=== PATIENT | female | born 1970 | race Caucasian/White ===

== ENCOUNTER 2018-08-24 17:14 | Observation (INO) | payer OTHER, SELFPAY ==
[2018-08-24 18:54] LABS: #Eosinphils 0.3 thou/uL (0.0-0.7); #Lymphocytes 3.3 thou/uL (1.20-3.40); #Monocytes 0.8 thou/uL (0.11-0.59); #Neutrophils 4.5 thou/uL (1.40-6.50); %Basophils 0.5 % (0.0-1.0); %Eosinophils 3.3 % (0.0-10.0); %Monocytes 8.5 % (0.0-10.0); %Neutrophils 50.8 % (42.0-75.0); Hemoglobin 12.4 g/dL (12.0-16.0); Mean Corpuscular HGB CONC 33.2 g/dL (32.0-36.0); Mean Corpuscular Hemoglobin 28.5 pg (27.0-31.0); Mean Corpuscular Volume 85.8 fL (78.0-98.0); Mean Platelet Volume 7.2 fL (7.4-10.4); Platelet Count 357 thou/uL (130-400); RBC Distribution Width 14.2 % (11.5-14.5); Red Blood Cell (RBC) Count 4.35 mill/uL (4.20-5.40); White Blood Cell (WBC) Count 8.9 thou/uL (4.8-10.8)
--- NOTE | 2018-08-24 19:03 | RAD ---
PORTABLE AP CHEST X-RAY: 08/24/2018 HISTORY: Chest pain. COMPARISON: Study from the [facility] from 09/16/2012. FINDINGS: The cardiac silhouette and pulmonary vasculature are within normal limits. The lungs remain clear. There has been no interval change when compared to the prior exam. IMPRESSION: No acute cardiopulmonary process. POS: [facility]
[2018-08-24] MEDS ORDERED: Nitroglycerin 2% Ointment 1 INCH/1 GM Packet ONE ×2 (19:08→20:36)
[2018-08-24 19:16] LABS: ALT (SGPT) 22 U/L (8-55); AST (SGOT) 20 U/L (5-34); Albumin 4.1 g/dL (3.5-5.0); Alkaline Phosphatase 102 U/L (40-150); Anion Gap 17 mmol/L (10-20); BUN (Urea Nitrogen) 13 mg/dL (7.0-18.7); Bilirubin, Total 0.3 mg/dL (0.2-1.2); CK (CPK) 79 U/L (29-168); Calc. Creatinine Clearance 0 mL/min (70-130); Calcium 9.4 mg/dL (7.8-10.44); Carbon Dioxide 22 mmol/L (22-29); Chloride 101 mmol/L (98-107); Estimated GFR-MDRD 69; Globulin 3.8 g/dL (2.4-3.5); Glucose 94 mg/dL (70-105); Lipase 12 U/L (8-78); Potassium 4.1 mmol/L (3.5-5.1); Protein, Total 7.9 g/dL (6.0-8.3); Sodium 136 mmol/L (136-145)
[2018-08-24 19:38] LABS: CKMB 2.7 ng/mL (0-6.6)
[2018-08-24] MEDS ORDERED: Acetaminophen 500 MG TAB ONE (20:36)
[2018-08-24] MEDS ORDERED: Acetaminophen 325 MG TAB PO PRN (21:24)
[2018-08-24] MEDS ORDERED: Bisacodyl 5 MG TAB PO PRN (21:24)
[2018-08-24] MEDS ORDERED: Ondansetron ODT 4 MG TAB PO PRN (21:24)
[2018-08-24] MEDS ORDERED: HYDROcodone/Acetaminophen 5/325 mg Tablet PO PRN (21:24)
[2018-08-24 22:04] VITALS: BMI 43.0
[2018-08-24 22:36] LABS: Troponin I 0.218 ng/mL (< 0.028)
[2018-08-24] MEDS ORDERED: PROVENTIL INHALER 6.7 G (200 INHALATIONS) INH PRN (23:30)
[2018-08-24] MEDS ORDERED: Nitroglycerin 0.4 MG TAB (25 Tab Bottle) SL PRN (23:30)
[2018-08-24] MEDS ORDERED: Citalopram 20 MG TAB PO SCH (23:45)
[2018-08-24] MEDS ORDERED: Lisinopril 10 MG TAB PO SCH (23:45)
[2018-08-24] MEDS ORDERED: Clopidogrel Bisulfate 75 MG TAB PO SCH (23:45)
--- NOTE | 2018-08-25 00:02 | HP ---
PRIMARY CARE PHYSICIAN: None. CHIEF COMPLAINT: Chest pain. HISTORY OF PRESENT ILLNESS: Ms. Ye is a very pleasant 48-year-old female presented to the emergency room with substernal chest pain which radiated up to the right side of her neck and right shoulder. The patient reports her pain started yesterday, went away and then started again today after she got upset. The patient is currently residing in the [facility]. She reports that she has not had any of her normal medication for the last 3 days. The patient reports the pain, when it occurs is stabbing, and currently is now down to an aching pain. Reports some shortness of breath with the sharp chest pain. Denies any diaphoresis. Does have history of coronary artery disease, has stent placement x3, is on Plavix. Also has past medical history of Colin's, thrombocytopenia, hypertension, is a smoker. The patient based on presentation and history, will be admitted to the observation unit for further management. PAST MEDICAL HISTORY: As above. Coronary artery disease, stent placement x3. Endocrine, Colin hypothyroidism. Hypertension, thrombocytopenia. PAST SURGICAL HISTORY: Tonsillectomy, tubal ligation. Cardiac cath x2 with 3 stents, reports last one was at least 2-[address] Toledo at the [facility] performed that surgery. Also has a history of a D and C. PSYCHIATRIC HISTORY: Depression. SOCIAL HISTORY: The patient denies alcohol use. She is a former drug user. Abuses methamphetamines, abuses tobacco, currently is in [facility]. FAMILY HISTORY: Pertinent for strong coronary artery disease on both sides of her family. REVIEW OF SYSTEMS: CONSTITUTIONAL: Denies chills. Denies fever. EYES: Denies any eye pain or vision changes. ENT: Denies any rhinorrhea, sore throat. CARDIOVASCULAR: Does report chest pain with radiation to the jaw and right side of her shoulder. Denies any syncope or palpitations. RESPIRATORY: Denies cough. Does report some shortness of breath with sharp chest pain. GI: Denies abdominal pain. Denies diarrhea. Does report some nausea and chronic constipation. Denies vomiting. : Denies dysuria, hematuria, or increased frequency. MUSCULOSKELETAL: Reports chronic sacral back pain due to an old fracture. Denies any new fall or injury. SKIN: Denies rash or skin changes. NEUROLOGIC: Denies headache or mental status changes. Denies paresthesias. Denies any sensory changes. ENDOCRINE: Does report history of Colin's, is currently on thyroid medication. Denies any changes. PHYSICAL EXAMINATION: VITAL SIGNS: Blood pressure 142/100, pulse is 105, respiratory rate is 20, temp is 98.7, O2 sats are 96% on room air. CONSTITUTIONAL: The patient appears nontoxic, appears pain free. She is alert and oriented to person, place, and time. HEENT: Head is atraumatic and normocephalic. Eyes, normal to inspection. Extraocular muscles are intact. ENT; pharynx exam is normal. Mucous membranes are moist. NECK: Normal range of motion. Trachea is midline. RESPIRATORY/CHEST: No respiratory distress. Breath sounds are clear. CARDIOVASCULAR: Normal rate and rhythm. Heart sounds normal. ABDOMEN: No tenderness on palpation. Bowel sounds are heard. BACK: Normal inspection. Normal range of motion. No tenderness. EXTREMITIES: Upper extremity: Normal inspection. Does have an Ben bandage on her right hand for soreness. Sensation is intact. Radial pulses equal bilaterally. Lower extremity: Normal range of motion. Motor strength is normal. Sensation intact. Pedal pulses equal bilaterally. No edema is noted. NEURO: The patient is oriented to person, place, and time. Speech is normal. No focal motor or sensory deficits. SKIN: Warm, dry, normal in color. PERTINENT LABORATORY DATA: Troponin x1 0.113. CK-MB is 2.7. Lipase is 12. CK is 79. Sodium 136, potassium 4.1, chloride 101, carbon dioxide 22, gap is 17, BUN is 13, creatinine is 0.87, estimated GFR 69, glucose 94, calcium 9.4, globulin elevated at 3.8, otherwise liver enzymes are unremarkable. White blood cell count is 8.9 , hemoglobin 12.4, hematocrit is 37.3, platelet count is 357. The patient did have a chest x-ray which showed no acute cardiopulmonary process. ASSESSMENT AND PLAN: 1. Chest pain. We will trend troponins. We will order a stress test in the morning. We will restart her home medications. We will ask to get her previous cardiac procedure records from the [facility] in [place]. 2. Hypertension. We will restart her home medications. We will monitor closely. 3. Hypothyroid. We will continue her home medications. We will order thyroid panel in the morning. 4. Depression. We will continue her home medication. 5. Coronary artery disease with stent placement. We will continue Plavix and aspirin. Order nitroglycerin as needed p.r.n. 6. We will add DVT and GI prophylaxis. Hospital course will be dependent on clinical findings. Job ID: [id number] MTDD
[2018-08-25 01:48] LABS: Troponin I 0.253 ng/mL (< 0.028)
[2018-08-25 05:04] LABS: ALT (SGPT) 19 U/L (8-55); AST (SGOT) 19 U/L (5-34); Albumin 3.7 g/dL (3.5-5.0); Alkaline Phosphatase 90 U/L (40-150); Anion Gap 15 mmol/L (10-20); BUN (Urea Nitrogen) 15 mg/dL (7.0-18.7); Bilirubin, Total 0.4 mg/dL (0.2-1.2); Calc. Creatinine Clearance 138 mL/min (70-130); Carbon Dioxide 21 mmol/L (22-29); Cardiac Risk 7.2 (Less than 4.5); Chloride 105 mmol/L (98-107); Cholesterol 317 mg/dl (< 200 Desired); Estimated GFR-MDRD 69; Globulin 3.5 g/dL (2.4-3.5); Glucose 96 mg/dL (70-105); HDL Cholesterol 44 mg/dL (>60 Neg Risk); LDL Cholesterol, Calculated 220 mg/dL; Potassium 3.9 mmol/L (3.5-5.1); Protein, Total 7.2 g/dL (6.0-8.3); Sodium 137 mmol/L (136-145); Triglycerides 266 mg/dL (Less than 150)
[2018-08-25 05:17] LABS: #Eosinphils 0.3 thou/uL (0.0-0.7); #Lymphocytes 3.4 thou/uL (1.20-3.40); #Monocytes 0.7 thou/uL (0.11-0.59); #Neutrophils 4.6 thou/uL (1.40-6.50); %Basophils 0.5 % (0.0-1.0); %Eosinophils 3.5 % (0.0-10.0); %Lymphocytes 37.7 % (21.0-51.0); %Monocytes 8.1 % (0.0-10.0); %Neutrophils 50.1 % (42.0-75.0); Hemoglobin 11.9 g/dL (12.0-16.0); Mean Corpuscular HGB CONC 36.1 g/dL (32.0-36.0); Mean Corpuscular Hemoglobin 30.9 pg (27.0-31.0); Mean Corpuscular Volume 85.7 fL (78.0-98.0); Mean Platelet Volume 7.4 fL (7.4-10.4); Platelet Count 284 thou/uL (130-400); Red Blood Cell (RBC) Count 3.84 mill/uL (4.20-5.40); White Blood Cell (WBC) Count 9.1 thou/uL (4.8-10.8)
[2018-08-25] MEDS: Levothyroxine Sodium 100 MCG TAB PO SCH (05:22)
[2018-08-25 05:23] LABS: Free T4 (Free Thyroxine) 0.6 ng/dL (0.70-1.48); Thyroid Stimulating Hormone 24.3318 uIU/mL (0.35-4.94)
[2018-08-25] MEDS: Famotidine 20 MG TAB PO SCH ×2 (09:52→22:09)
--- NOTE | 2018-08-25 12:07 | CON ---
DATE OF CONSULTATION: 08/25/2018 CARDIOLOGY CONSULTATION REASON FOR CONSULTATION: Chest pain. PRIMARY CARDIOLOGY: Dr. Toledo. HISTORY OF PRESENT ILLNESS: Ms. Ye is a very pleasant 48-year-old white female, who comes to the hospital for chest pain. She is currently an inmate. She started having chest pain on the right side of her chest related to the right shoulder and right neck. She had a recurrence when she got upset about something and she was brought in for evaluation. She has a history of coronary artery disease with 3 stents placed in the past by Dr. Toledo at the [facility]. The last one was about 3 years ago. She states that the pain that she is having right now is different from the pain she had when she needed the stents. She also admits to the right shoulder pain there when she moves her arm. PAST MEDICAL HISTORY: 1. Coronary artery disease, status post stenting as above. 2. Colin's hypothyroidism. 3. Hypertension. 4. Thrombocytopenia. PAST SURGICAL HISTORY: 1. Tonsillectomy. 2. Tubal ligation. 3. Cardiac catheterization with stent placement twice. 4. D and C. SOCIAL HISTORY: No alcohol. Former drug user, methamphetamines, and uses tobacco. Currently in the [facility]. FAMILY HISTORY: Coronary artery disease in both sides of her family, early. OUTPATIENT MEDICATIONS: Include; 1. Sublingual nitro p.r.n. 2. Albuterol inhaler. 3. Celexa. 4. Toprol-XL 100 mg a day. 5. Lisinopril 10 mg a day. 6. Plavix 75 mg a day. 7. Prilosec daily. 8. Levothyroxine 200 mcg daily. 9. Aspirin 325 a day. ALLERGIES: SULFA GIVES HIVES AND LITHIUM. REVIEW OF SYSTEMS: A 12-point review of systems was done, and it was all negative unless stated in the history of present illness. PHYSICAL EXAMINATION: VITAL SIGNS: Temperature 98.2, pulse 73, respiratory rate 16, saturating 94% on room air, and blood pressure 112/58. GENERAL: Awake, alert, and oriented x3. No distress. HEENT: Normocephalic and atraumatic. NECK: Supple. LUNGS: Clear. CARDIOVASCULAR: S1 and S2. No S3 or S4. No murmurs. No rubs. ABDOMEN: Soft. Positive bowel sounds. EXTREMITIES: No edema. SKIN: Warm and dry. LABORATORY DATA: Laboratory work was reviewed. CBC is remarkable for hemoglobin mildly low at 11.9, hematocrit of 32, and platelet count of 284. Chemistry was unremarkable. Troponin was 0.01, 0.02, and 0.02, in the indeterminate range. Triglycerides were 266. Cholesterol total of 317, LDL of 220, and HDL of 44. Her TSH was at 24. Her free T3 is low and her free T4 low. IMAGING DATA: EKG was reviewed. ASSESSMENT AND PLAN: 1. Chest pain: Atypical right-sided and pain with right arm movement. History of coronary artery disease, so we will plan on doing nuclear stress test. 2. Hypothyroidism: Will need reinitiation of her thyroid medicines. Apparently, she has been off her regular medicines for 3 days. 3. Further recommendations per results of stress testing. Job ID: [id number]
[2018-08-25] MEDS ORDERED: Regadenoson 0.4 MG/5 ML SYRINGE ONE (14:58)
[2018-08-25] MEDS ORDERED: Aspirin 325 MG TAB PO SCH (17:00)
--- NOTE | 2018-08-25 18:25 | PDOC.PN ---
- Subjective Encounter Start Date: 08/25/18 Encounter Start Time: 18:23 Patient lying in bed, feels better today. No chest pain, shortness of breath or abdominal pain. Cardiology planning echo and stress. - Objective MAR Reviewed: Yes Vital Signs & Weight: Vital Signs (12 hours) Temp Pulse Resp BP Pulse Ox 08/25/18 15:24 98.5 F 87 16 118/67 94 L 08/25/18 11:47 98.2 F 76 16 109/68 95 08/25/18 08:05 98.2 F 73 16 112/58 L 95 Weight Weight 237 lb 12.8 oz I&O: 08/24/18 08/25/18 08/26/18 06:59 06:59 06:59 Intake Total 240 720 Balance 240 720 Result Diagrams: 08/25/18 04:07 08/25/18 04:07 Radiology Reviewed by me: Yes Phys Exam - Physical Examination HEENT: PERRLA, moist MMs, oral pharynx no lesions Neck: no nodes, no JVD, supple Respiratory: no wheezing, no rales, no rhonchi, clear to auscultation bilateral Cardiovascular: RRR, no significant murmur, no rub Gastrointestinal: soft, non-tender, no distention, positive bowel sounds Musculoskeletal: no edema, pulses present Neurological: non-focal, normal sensation, moves all 4 limbs Lymphatic: no nodes Psychiatric: normal affect, A&O x 3 Skin: no rash, normal turgor, cap refill <2 seconds Dx/Plan (1) Chest pain Code(s): R07.9 - CHEST PAIN, UNSPECIFIED Status: Acute (2) Hypertension Code(s): I10 - ESSENTIAL (PRIMARY) HYPERTENSION Status: Acute (3) Hypothyroidism Code(s): E03.9 - HYPOTHYROIDISM, UNSPECIFIED Status: Acute - Plan cont current plan of care * Continue medical management including asa and plavix. * Cardiology following and plan for echo and stress * Restart home meds including synthroid * Monitor vitals and labs
[2018-08-25] MEDS ORDERED: Sodium Chloride 0.9% 10 ML ONE (20:28)
[2018-08-25] MEDS ORDERED: Lisinopril 10 MG TAB PO SCH (21:00)
[2018-08-25] MEDS ORDERED: Citalopram 20 MG TAB PO SCH (21:00)
[2018-08-25] MEDS ORDERED: Clopidogrel Bisulfate 75 MG TAB PO SCH (21:00)
[2018-08-25] MEDS ORDERED: Atorvastatin Calcium 40 MG TAB PO SCH (21:00)
[2018-08-26 05:03] LABS: ALT (SGPT) 18 U/L (8-55); AST (SGOT) 16 U/L (5-34); Albumin 3.5 g/dL (3.5-5.0); Alkaline Phosphatase 85 U/L (40-150); Anion Gap 14 mmol/L (10-20); BUN (Urea Nitrogen) 16 mg/dL (7.0-18.7); Bilirubin, Total 0.3 mg/dL (0.2-1.2); Calc. Creatinine Clearance 113 mL/min (70-130); Calcium 8.9 mg/dL (7.8-10.44); Carbon Dioxide 21 mmol/L (22-29); Chloride 105 mmol/L (98-107); Estimated GFR-MDRD 70; Globulin 3.4 g/dL (2.4-3.5); Glucose 99 mg/dL (70-105); Potassium 4.1 mmol/L (3.5-5.1); Protein, Total 6.9 g/dL (6.0-8.3); Sodium 136 mmol/L (136-145)
[2018-08-26 05:11] LABS: #Basophils 0.1 thou/uL (0.0-0.2); #Eosinphils 0.4 thou/uL (0.0-0.7); #Lymphocytes 3.7 thou/uL (1.20-3.40); #Monocytes 0.7 thou/uL (0.11-0.59); %Basophils 0.6 % (0.0-1.0); %Eosinophils 4.7 % (0.0-10.0); %Lymphocytes 41.8 % (21.0-51.0); %Monocytes 7.4 % (0.0-10.0); %Neutrophils 45.5 % (42.0-75.0); Hemoglobin 11.3 g/dL (12.0-16.0); Mean Corpuscular HGB CONC 31.5 g/dL (32.0-36.0); Mean Corpuscular Hemoglobin 28.2 pg (27.0-31.0); Mean Corpuscular Volume 89.5 fL (78.0-98.0); Mean Platelet Volume 7.6 fL (7.4-10.4); Platelet Count 334 thou/uL (130-400); RBC Distribution Width 14.1 % (11.5-14.5); Red Blood Cell (RBC) Count 3.98 mill/uL (4.20-5.40); White Blood Cell (WBC) Count 8.9 thou/uL (4.8-10.8)
[2018-08-26] MEDS: Levothyroxine Sodium 100 MCG TAB PO SCH (05:39)
[2018-08-26] MEDS ORDERED: Sodium Chloride 0.9% 10 ML ONE (08:00)
[2018-08-26] MEDS: Famotidine 20 MG TAB PO SCH (08:47)
[2018-08-26 11:44] LABS: Bilirubin Negative (Negative); Blood, Urine Negative (Negative); Clarity CLOUDY (Clear); Glucose, Urine (Dipstick) Negative (Negative); Leukocyte Large (Negative); Nitrite Negative (Negative); Protein, Urine (Dipstick) Negative (Neg-Trace); Specific Gravity, Urine 1.029 (1.002-1.036); Urobilinogen 0.2 mg/dL (0.2-1.0)
[2018-08-26 11:47] LABS: Bacteria/HPF Rare-Few HPF (None Seen); Hyaline Casts/LPF 7-10 HYALINE CAST LPF (0-3 Hyaline); Pathc Cast-AUWi Flag 1.45 (0-2.49)
--- NOTE | 2018-08-26 12:15 | NM ---
CARDIAC SPECT: HISTORY: A 48-year-old female with chest pain, coronary artery disease, CT, stent placement, and hypertension. TECHNIQUE: A myocardial perfusion scan was performed using the single isotope two-day protocol with 33 millicuri es technetium 99m sestamibi, injected intravenously for stress and rest images. Pharmacologic stress with Lexiscan was monitored and interpreted by Dr. Pierson. FINDINGS: There is a fixed defect in the distal anteroseptal wall. No reversible defects are seen. GATD SPECT LVEF: 55%. WALL MOTION EXAM: Normal. IMPRESSION: No evidence of reversible ischemia. POS: OFF
[2018-08-26 12:46] VITALS: BP 118/62; TEMP 98.1
--- NOTE | 2018-08-26 12:59 | PDOC.CTH ---
Cardiology Progress Note - Subjective Doing well. No more episodes of chest pain. - Objective Vital Signs Temp Pulse Resp BP Pulse Ox 08/26/18 12:20 98.1 F 71 16 118/62 99 08/26/18 08:42 16 08/26/18 07:44 98.2 F 67 16 119/71 92 L 08/26/18 04:30 97.8 F 69 18 124/70 94 L Weight 237 lb 12.8 oz 08/25/18 08/26/18 08/27/18 06:59 06:59 06:59 Intake Total 240 1080 240 Output Total 100 Balance 240 980 240 - Physical Examination General/Neuro: alert & oriented x3, NAD Neck: no JVD present Lungs: CTA, unlabored respirations Heart: RRR Abdomen: NT/ND Extremities: other: (no edema) - Telemetry Telemetry Rhythm: NSR - Labs Result Diagrams: 08/26/18 04:01 08/26/18 04:01 Troponin/CKMB CK-MB (CK-2) 2.7 ng/mL (0-6.6) 08/24/18 18:43 Troponin I 0.253 ng/mL (< 0.028) H 08/25/18 01:13 - Assessment/Plan 1. Chest pain, atypical 2. AD, stable,m no ACS. PLAN: - December discharge. - Negative stress test, normal LV function.
[2018-08-26] MEDS ORDERED: Fluconazole 100 MG TAB PO SCH (13:00)
--- NOTE | 2018-08-30 22:04 | EKG ---
Test Reason : Blood Pressure : / mmHG Vent. Rate : 103 BPM Atrial Rate : 103 BPM P-R Int : 144 ms QRS Dur : 062 ms QT Int : 316 ms P-R-T Axes : 041 004 068 degrees QTc Int : 413 ms Sinus tachycardia Minimal voltage criteria for LVH, may be normal variant Septal infarct , age undetermined Abnormal ECG Confirmed by ANNE MARIE CHAPMAN, LUIS ([id number]), online editor GUILLE LUCIANO ([id number]) on 08/30/2018 10:04:05 PM Referred By: Confirmed By:LUIS KENNEY MD
== END 2018-08-26 14:55 ==
LOC: EEVIPCON 17:14 → ERS 17:14 → 2SW 20:07
PROVIDERS: ADMIT Hospitalist; ATTEND Hospitalist
DX: R07.89 Other chest pain (principal); I25.10 Atherosclerotic heart disease of native coronary artery without angina pectoris; F32.9 Major depressive disorder, single episode, unspecified; E06.3 Autoimmune thyroiditis; D69.6 Thrombocytopenia, unspecified; E78.00 Pure hypercholesterolemia, unspecified; F17.210 Nicotine dependence, cigarettes, uncomplicated; F15.11 Other stimulant abuse, in remission; I10 Essential (primary) hypertension; Z79.02 Long term (current) use of antithrombotics/antiplatelets; Z79.82 Long term (current) use of aspirin; Z79.899 Other long term (current) drug therapy; Z88.2 Allergy status to sulfonamides; Z88.8 Allergy status to other drugs, medicaments and biological substances; Z95.5 Presence of coronary angioplasty implant and graft
CPT/HCPCS: 36415; 71045; 78452; 80053; 80061; 81001; 82550; 82553; 83690; 84439; 84443; 84481; 84484; 85025; 87086; 93005; 93017; 93306; A9500; G0378; J2785

== ENCOUNTER 2021-05-24 15:55 | Inpatient (IN) | payer OTHER, SELFPAY ==
[2021-05-24 16:49] LABS: #Eosinphils 0.3 thou/uL (0.0-0.7); #Lymphocytes 2.5 thou/uL (1.20-3.40); #Monocytes 0.7 thou/uL (0.11-0.59); #Neutrophils 5.5 thou/uL (1.40-6.50); %Basophils 0.5 % (0.0-1.0); %Eosinophils 2.9 % (0.0-10.0); %Lymphocytes 27.7 % (21.0-51.0); %Monocytes 7.5 % (0.0-10.0); %Neutrophils 61.4 % (42.0-75.0); Hemoglobin 13.1 g/dL (12.0-16.0); Mean Corpuscular HGB CONC 34.2 g/dL (32.0-36.0); Mean Corpuscular Hemoglobin 33.2 pg (27.0-31.0); Mean Corpuscular Volume 97.2 fL (78.0-98.0); Mean Platelet Volume 8.2 fL (7.4-10.4); Platelet Count 340 thou/uL (130-400); RBC Distribution Width 13.4 % (11.5-14.5); Red Blood Cell (RBC) Count 3.93 mill/uL (4.20-5.40); White Blood Cell (WBC) Count 8.9 thou/uL (4.8-10.8)
[2021-05-24 17:46] LABS: ALT (SGPT) 13 U/L (8-55); AST (SGOT) 22 U/L (5-34); Albumin 4.1 g/dL (3.5-5.0); Alkaline Phosphatase 86 U/L (40-110); Anion Gap 17 mmol/L (10-20); BUN (Urea Nitrogen) 15 mg/dL (9.8-20.1); Bilirubin, Total 0.5 mg/dL (0.2-1.2); CK (CPK) 158 U/L (29-168); Calc. Creatinine Clearance 0 mL/min (70-130); Calcium 9.9 mg/dL (7.8-10.44); Carbon Dioxide 23 mmol/L (22-29); Chloride 102 mmol/L (98-107); Globulin 4.2 g/dL (2.4-3.5); Glucose 106 mg/dL (70-105); Potassium 4.8 mmol/L (3.5-5.1); Protein, Total 8.3 g/dL (6.0-8.3); Sodium 137 mmol/L (136-145)
[2021-05-24] MEDS ORDERED: Nitroglycerin 0.4 MG TAB (25 Tab Bottle) SL PRN (18:58)
[2021-05-24] MEDS ORDERED: Aspirin 325 MG TAB PO SCH (19:00)
[2021-05-24 20:10] LABS: Troponin I 0.021 ng/mL (< 0.028)
[2021-05-24 20:23] VITALS: BMI 47.2
[2021-05-24] MEDS ORDERED: FLU VACC QS2021-22(6MOS UP)/PF 60 MCG/0.5 ML SYRINGE IM ONE (20:45)
[2021-05-25 00:09] LABS: Troponin I 0.018 ng/mL (< 0.028)
[2021-05-25 06:19] LABS: #Basophils 0.1 thou/uL (0.0-0.2); #Eosinphils 0.4 thou/uL (0.0-0.7); #Monocytes 0.9 thou/uL (0.11-0.59); #Neutrophils 5.1 thou/uL (1.40-6.50); %Eosinophils 3.8 % (0.0-10.0); %Lymphocytes 32.3 % (21.0-51.0); %Monocytes 9.2 % (0.0-10.0); %Neutrophils 53.7 % (42.0-75.0); Anion Gap 16 mmol/L (10-20); BUN (Urea Nitrogen) 13 mg/dL (9.8-20.1); Calc. Creatinine Clearance 105 mL/min (70-130); Calcium 9.4 mg/dL (7.8-10.44); Carbon Dioxide 23 mmol/L (22-29); Chloride 101 mmol/L (98-107); Glucose 110 mg/dL (70-105); Hemoglobin 13.5 g/dL (12.0-16.0); Mean Corpuscular HGB CONC 34.2 g/dL (32.0-36.0); Mean Corpuscular Hemoglobin 33.2 pg (27.0-31.0); Mean Corpuscular Volume 97.2 fL (78.0-98.0); Mean Platelet Volume 8.2 fL (7.4-10.4); Platelet Count 349 thou/uL (130-400); Potassium 3.8 mmol/L (3.5-5.1); RBC Distribution Width 13.5 % (11.5-14.5); Red Blood Cell (RBC) Count 4.05 mill/uL (4.20-5.40); Sodium 136 mmol/L (136-145); White Blood Cell (WBC) Count 9.4 thou/uL (4.8-10.8)
[2021-05-25] MEDS ORDERED: Non-Formulary Item 1 EACH (Albuterol Sulfate [Proair Hfa] 8.5 GM Hfa.Aer.Ad) INH PRN (07:11)
[2021-05-25] MEDS ORDERED: Bisacodyl 10 MG SUPP PR PRN (07:12)
[2021-05-25] MEDS ORDERED: Cepastat Lozenges 1 LOZ PO PRN (07:12)
[2021-05-25] MEDS ORDERED: Artificial Tear Sol 15 ML BOT EA EYE PRN (07:12)
[2021-05-25] MEDS ORDERED: Calcium Carbonate 500 MG ChewTAB PO PRN (07:12)
[2021-05-25] MEDS ORDERED: Hydrocerin (Eucerin) Cream 120 gm Jar TOP PRN (07:12)
[2021-05-25] MEDS ORDERED: Sodium Chloride 0.65% Nasal 44 ML BOT EA NARE PRN (07:12)
[2021-05-25] MEDS ORDERED: Loperamide HCl 2 MG CAP PO PRN (07:12)
[2021-05-25] MEDS ORDERED: Benzonatate 100 MG CAP PO PRN (07:12)
[2021-05-25] MEDS ORDERED: GUAIFENESIN SF SOLN 200 MG/10 ML UDCUP PO PRN (07:12)
[2021-05-25] MEDS ORDERED: HYDROcodone/Acetaminophen 5/325 mg Tablet PO PRN (07:12)
[2021-05-25] MEDS ORDERED: Zolpidem Tartrate 5 MG TAB PO PRN (07:12)
[2021-05-25] MEDS ORDERED: Senokot S 8.6-50 MG TAB PO PRN (07:12)
[2021-05-25] MEDS ORDERED: Albuterol 200 PUFF (6.7GM INHALER) INH PRN (07:32)
[2021-05-25] MEDS ORDERED: Non-Formulary Item 1 EACH (Levothyroxine Sodium [Levothyroxine Sodium] 200 MCG Tablet) PO SCH (09:00)
[2021-05-25 09:19] LABS: Triglycerides 381 mg/dL (Less than 150)
[2021-05-25 09:24] LABS: Cholesterol 399 mg/dl (< 200 Desired)
[2021-05-25 09:25] LABS: Cardiac Risk 9.3 (Less than 4.5); HDL Cholesterol 43 mg/dL (>60 Neg Risk); LDL Cholesterol, Calculated 280 mg/dL
[2021-05-25] MEDS ORDERED: Fluconazole 100 MG TAB PO SCH (16:00)
[2021-05-25] MEDS: hydrALAZINE 20 MG/ML VIAL SLOW IVP PRN (17:40)
[2021-05-25] MEDS: Loratadine 10 MG TAB PO PRN (20:13)
[2021-05-25] MEDS: Atorvastatin Calcium 40 MG TAB PO SCH (20:14)
[2021-05-25] MEDS: Lisinopril 10 MG TAB PO SCH (20:14)
[2021-05-25] MEDS: Clopidogrel Bisulfate 75 MG TAB PO SCH (20:14)
[2021-05-25] MEDS: Citalopram 20 MG TAB PO SCH (20:14)
[2021-05-25] MEDS ORDERED: Non-Formulary Item 1 EACH (Citalopram Hydrobromide [Celexa] 40 MG Tablet) PO SCH (21:00)
[2021-05-25] MEDS ORDERED: Melatonin 3 MG TAB PO PRN (21:04)
[2021-05-26] MEDS: Levothyroxine Sodium 100 MCG TAB PO SCH (05:21)
[2021-05-26] MEDS ORDERED: Levothyroxine Sodium 100 MCG TAB PO SCH (06:00)
[2021-05-26] MEDS: hydrALAZINE 20 MG/ML VIAL SLOW IVP PRN (08:41)
[2021-05-26] MEDS ORDERED: NIFEdipine XL 30 MG TAB PO SCH (09:45)
[2021-05-26] MEDS: Loratadine 10 MG TAB PO PRN (09:48)
[2021-05-26] MEDS: Acetaminophen 500 MG TAB PO PRN (09:53)
[2021-05-26] MEDS ORDERED: Regadenoson 0.4 MG/5 ML SYRINGE ONE (12:55)
[2021-05-26] MEDS: Atorvastatin Calcium 40 MG TAB PO SCH (20:17)
[2021-05-26] MEDS: Clopidogrel Bisulfate 75 MG TAB PO SCH (20:18)
[2021-05-26] MEDS: Citalopram 20 MG TAB PO SCH (20:18)
[2021-05-26] MEDS: Lisinopril 10 MG TAB PO SCH (20:18)
[2021-05-27] MEDS: Levothyroxine Sodium 100 MCG TAB PO SCH (06:10)
[2021-05-27] MEDS: NIFEdipine XL 30 MG TAB PO SCH (09:26)
[2021-05-27] MEDS: Carvedilol 6.25 MG TAB PO SCH (16:07)
[2021-05-27] MEDS: Atorvastatin Calcium 40 MG TAB PO SCH (20:53)
[2021-05-27] MEDS: Citalopram 20 MG TAB PO SCH (20:53)
[2021-05-27] MEDS: Clopidogrel Bisulfate 75 MG TAB PO SCH (20:53)
[2021-05-27] MEDS: Lisinopril 10 MG TAB PO SCH (20:53)
[2021-05-27] MEDS: Loratadine 10 MG TAB PO PRN (20:55)
[2021-05-28] MEDS: Acetaminophen 500 MG TAB PO PRN (04:18)
[2021-05-28] MEDS: Levothyroxine Sodium 100 MCG TAB PO SCH (06:21)
[2021-05-28] MEDS: Carvedilol 6.25 MG TAB PO SCH ×2 (09:22→17:18)
[2021-05-28] MEDS: NIFEdipine XL 30 MG TAB PO SCH (09:23)
[2021-05-28] MEDS: Acetaminophen 325 MG TAB PO PRN ×2 (09:23→19:06)
[2021-05-28 15:27] VITALS: TEMP 97.7
[2021-05-28 17:23] VITALS: BP 142/70
[2021-05-28] MEDS: Lisinopril 10 MG TAB PO SCH (18:59)
[2021-05-28] MEDS: Clopidogrel Bisulfate 75 MG TAB PO SCH (18:59)
[2021-05-28] MEDS: Atorvastatin Calcium 40 MG TAB PO SCH (19:00)
[2021-05-28] MEDS: Citalopram 20 MG TAB PO SCH (19:00)
== END 2021-05-28 19:20 | DRG 305 ==
LOC: EEVIPCON 15:55 → ERS 15:55 → 2SW 17:23 → OBSVTOIN 05-26 14:56
PROVIDERS: ADMIT Internal Medicine; ATTEND Internal Medicine
DX: I16.0 Hypertensive urgency (principal); F11.20 Opioid dependence, uncomplicated; Z68.42 Body mass index [BMI] 45.0-49.9, adult; E03.9 Hypothyroidism, unspecified; E78.2 Mixed hyperlipidemia; I25.10 Atherosclerotic heart disease of native coronary artery without angina pectoris; F12.10 Cannabis abuse, uncomplicated; F15.10 Other stimulant abuse, uncomplicated; F41.9 Anxiety disorder, unspecified; N18.30 Chronic kidney disease, stage 3 unspecified; I12.9 Hypertensive chronic kidney disease with stage 1 through stage 4 chronic kidney disease, or unspecified chronic kidney disease; E66.01 Morbid (severe) obesity due to excess calories; F31.9 Bipolar disorder, unspecified; F43.10 Post-traumatic stress disorder, unspecified; E06.3 Autoimmune thyroiditis; I08.1 Rheumatic disorders of both mitral and tricuspid valves; I49.3 Ventricular premature depolarization; I25.2 Old myocardial infarction; Z86.73 Personal history of transient ischemic attack (TIA), and cerebral infarction without residual deficits; Z88.2 Allergy status to sulfonamides; Z88.8 Allergy status to other drugs, medicaments and biological substances; Z79.899 Other long term (current) drug therapy; Z79.890 Hormone replacement therapy; Z79.02 Long term (current) use of antithrombotics/antiplatelets; Z86.16 Personal history of COVID-19; Z98.51 Tubal ligation status; Z95.5 Presence of coronary angioplasty implant and graft; Z83.3 Family history of diabetes mellitus; Z83.49 Family history of other endocrine, nutritional and metabolic diseases; Z82.3 Family history of stroke; Z80.0 Family history of malignant neoplasm of digestive organs; Z91.19 Patient's noncompliance with other medical treatment and regimen
CPT/HCPCS: 36415; 71045; 78452; 80048; 80053; 80061; 82550; 84443; 84484; 85025; 93005; 93017; 93306; 94760; 96374; 96376; A9500; G0378; J0360; J2785

== ENCOUNTER 2021-06-29 22:44 | Observation (INO) | payer SELFPAY ==
[2021-06-29] MEDS ORDERED: Aspirin Chewable 81 MG TAB ONE (23:14)
[2021-06-29 23:24] LABS: #Basophils 0.1 thou/uL (0.0-0.2); #Eosinphils 0.3 thou/uL (0.0-0.7); #Lymphocytes 2.8 thou/uL (1.20-3.40); #Monocytes 0.8 thou/uL (0.11-0.59); #Neutrophils 4.4 thou/uL (1.40-6.50); %Basophils 0.8 % (0.0-1.0); %Eosinophils 3.5 % (0.0-10.0); %Lymphocytes 33.7 % (21.0-51.0); %Monocytes 9.3 % (0.0-10.0); %Neutrophils 52.8 % (42.0-75.0); Hemoglobin 11.6 g/dL (12.0-16.0); Mean Corpuscular HGB CONC 36.6 g/dL (32.0-36.0); Mean Corpuscular Hemoglobin 35.4 pg (27.0-31.0); Mean Corpuscular Volume 96.9 fL (78.0-98.0); Mean Platelet Volume 7.1 fL (7.4-10.4); Platelet Count 271 thou/uL (130-400); RBC Distribution Width 12.5 % (11.5-14.5); Red Blood Cell (RBC) Count 3.27 mill/uL (4.20-5.40); White Blood Cell (WBC) Count 8.4 thou/uL (4.8-10.8)
[2021-06-29 23:46] LABS: ALT (SGPT) 14 U/L (8-55); AST (SGOT) 15 U/L (5-34); Albumin 4.1 g/dL (3.5-5.0); Alkaline Phosphatase 81 U/L (40-110); Anion Gap 15 mmol/L (10-20); BUN (Urea Nitrogen) 19 mg/dL (9.8-20.1); Bilirubin, Total 0.3 mg/dL (0.2-1.2); Calc. Creatinine Clearance 0 mL/min (70-130); Calcium 9.1 mg/dL (7.8-10.44); Carbon Dioxide 26 mmol/L (22-29); Chloride 103 mmol/L (98-107); Globulin 3.6 g/dL (2.4-3.5); Glucose 121 mg/dL (70-105); Lipase 17 U/L (8-78); Potassium 3.7 mmol/L (3.5-5.1); Protein, Total 7.7 g/dL (6.0-8.3); Sodium 140 mmol/L (136-145)
[2021-06-30] MEDS ORDERED: Ondansetron PF 4 MG/2 ML Vial IVP PRN (01:46)
[2021-06-30] MEDS ORDERED: Nitroglycerin 0.4 MG TAB (25 Tab Bottle) SL PRN (01:46)
[2021-06-30] MEDS ORDERED: Acetaminophen 650 MG Suppository PR PRN (01:46)
[2021-06-30] MEDS ORDERED: Acetaminophen 325 MG TAB PO PRN (01:46)
[2021-06-30] MEDS ORDERED: Ondansetron ODT 4 MG TAB PO PRN (01:46)
[2021-06-30 01:48] VITALS: BMI 46.1
[2021-06-30] MEDS ORDERED: Morphine 4 MG/ML VIAL SLOW IVP PRN (02:07)
[2021-06-30 02:51] LABS: #Basophils 0.1 thou/uL (0.0-0.2); #Eosinphils 0.4 thou/uL (0.0-0.7); #Lymphocytes 2.9 thou/uL (1.20-3.40); #Monocytes 0.8 thou/uL (0.11-0.59); #Neutrophils 4.2 thou/uL (1.40-6.50); %Basophils 0.9 % (0.0-1.0); %Eosinophils 4.4 % (0.0-10.0); %Lymphocytes 34.8 % (21.0-51.0); %Monocytes 9.3 % (0.0-10.0); %Neutrophils 50.7 % (42.0-75.0); Hemoglobin 11.2 g/dL (12.0-16.0); Mean Corpuscular Hemoglobin 34.5 pg (27.0-31.0); Mean Corpuscular Volume 98.5 fL (78.0-98.0); Mean Platelet Volume 7.3 fL (7.4-10.4); Platelet Count 266 thou/uL (130-400); RBC Distribution Width 12.7 % (11.5-14.5); Red Blood Cell (RBC) Count 3.24 mill/uL (4.20-5.40); White Blood Cell (WBC) Count 8.2 thou/uL (4.8-10.8)
[2021-06-30 03:18] LABS: Troponin I Less than 0.010 ng/mL (< 0.028)
[2021-06-30 03:21] LABS: Calcium 8.8 mg/dL (7.8-10.44); Chloride 104 mmol/L (98-107); Glucose 129 mg/dL (70-105); Potassium 3.1 mmol/L (3.5-5.1); Sodium 139 mmol/L (136-145)
[2021-06-30 03:23] LABS: Anion Gap 14 mmol/L (10-20); Carbon Dioxide 24 mmol/L (22-29)
[2021-06-30 03:25] LABS: Calc. Creatinine Clearance 122 mL/min (70-130)
[2021-06-30 03:26] LABS: BUN (Urea Nitrogen) 20 mg/dL (9.8-20.1)
[2021-06-30] MEDS ORDERED: Citalopram 20 MG TAB PO SCH (03:30)
[2021-06-30] MEDS: Levothyroxine Sodium 75 MCG TAB PO SCH (05:32)
[2021-06-30 05:59] LABS: Troponin I Less than 0.010 ng/mL (< 0.028)
[2021-06-30] MEDS ORDERED: Potassium Chloride 20 MEQ TAB PO SCH (07:45)
[2021-06-30] MEDS: Aspirin Chewable 81 MG TAB PO SCH (08:12)
[2021-06-30] MEDS: Citalopram 20 MG TAB PO SCH (08:12)
[2021-06-30] MEDS: Carvedilol 6.25 MG TAB PO SCH ×2 (08:12→20:11)
[2021-06-30] MEDS: NIFEdipine XL 30 MG TAB PO SCH (08:12)
[2021-06-30 10:02] LABS: Hemoglobin A1c 6.3 % (4.0-6.0)
[2021-06-30 14:00] LABS: SARS-CoV-2 PCR by NAA Not Detected (NotDetected)
[2021-06-30] MEDS ORDERED: Atorvastatin Calcium 40 MG TAB PO SCH (21:00)
[2021-07-01] MEDS: Levothyroxine Sodium 75 MCG TAB PO SCH (05:42)
[2021-07-01 08:00] LABS: Hemoglobin 12.9 g/dL (12.0-16.0); Mean Corpuscular HGB CONC 35.5 g/dL (32.0-36.0); Mean Corpuscular Hemoglobin 34.5 pg (27.0-31.0); RBC Distribution Width 12.6 % (11.5-14.5); Red Blood Cell (RBC) Count 3.74 mill/uL (4.20-5.40)
[2021-07-01 08:15] LABS: Anion Gap 13 mmol/L (10-20); BUN (Urea Nitrogen) 15 mg/dL (9.8-20.1); Calc. Creatinine Clearance 148 mL/min (70-130); Calcium 8.8 mg/dL (7.8-10.44); Carbon Dioxide 23 mmol/L (22-29); Chloride 104 mmol/L (98-107); Glucose 105 mg/dL (70-105); Potassium 3.9 mmol/L (3.5-5.1); Sodium 136 mmol/L (136-145)
[2021-07-01 08:36] LABS: Eosinophils 4 % (0-10); Lymphocytes 27 % (21-51); MDiff Complete? YES; Mean Platelet Volume 7.2 fL (7.4-10.4); Monocytes 7 % (0-10); Neutrophil 59 % (42-75); Platelet Count 262 thou/uL (130-400); Platelet Morphology Comment Appears Adequate; Reactive Lymphocytes 3 % (0-10); White Blood Cell (WBC) Count 7.7 thou/uL (4.8-10.8)
[2021-07-01] MEDS ORDERED: Hydrochlorothiazide 25 MG TAB PO SCH (09:00)
[2021-07-01] MEDS ORDERED: Non-Formulary Item 1 EACH (Hydrochlorothiazide [Hydrochlorothiazide] 12.5 MG Capsule) PO SCH (09:00)
[2021-07-01] MEDS: Citalopram 20 MG TAB PO SCH (09:26)
[2021-07-01] MEDS: Aspirin Chewable 81 MG TAB PO SCH (09:26)
[2021-07-01] MEDS: Carvedilol 6.25 MG TAB PO SCH (09:26)
[2021-07-01] MEDS: NIFEdipine XL 30 MG TAB PO SCH (09:27)
[2021-07-01 12:30] VITALS: BP 133/66; TEMP 98
[2021-07-01] MEDS ORDERED: Lisinopril 10 MG TAB PO SCH (21:00)
== END 2021-07-01 16:51 ==
LOC: ERS 22:44 → 2SW 06-30 00:23
PROVIDERS: ADMIT Student in an Organized Health Care Education/Training Program; ATTEND Physician Assistant Medical
DX: R07.89 Other chest pain (principal); I25.10 Atherosclerotic heart disease of native coronary artery without angina pectoris; E78.2 Mixed hyperlipidemia; I13.10 Hypertensive heart and chronic kidney disease without heart failure, with stage 1 through stage 4 chronic kidney disease, or unspecified chronic kidney disease; N18.9 Chronic kidney disease, unspecified; D63.1 Anemia in chronic kidney disease; E06.3 Autoimmune thyroiditis; I25.2 Old myocardial infarction; F17.210 Nicotine dependence, cigarettes, uncomplicated; R45.851 Suicidal ideations; I08.2 Rheumatic disorders of both aortic and tricuspid valves; E66.01 Morbid (severe) obesity due to excess calories; Z68.42 Body mass index [BMI] 45.0-49.9, adult; Z86.16 Personal history of COVID-19; Z86.73 Personal history of transient ischemic attack (TIA), and cerebral infarction without residual deficits; Z79.02 Long term (current) use of antithrombotics/antiplatelets; Z79.899 Other long term (current) drug therapy; Z88.2 Allergy status to sulfonamides; Z88.8 Allergy status to other drugs, medicaments and biological substances; Z95.5 Presence of coronary angioplasty implant and graft; Z20.822 Contact with and (suspected) exposure to COVID-19
CPT/HCPCS: 36415; 71045; 80048; 80053; 83036; 83690; 84484; 85025; 93005; 93306; G0378; U0003; U0005

== ENCOUNTER 2022-03-17 20:07 | Inpatient (IN) | payer SELFPAY ==
[2022-03-17] MEDS ORDERED: Ondansetron PF 4 MG/2 ML Vial IVP PRN (21:22)
[2022-03-17 22:04] LABS: Troponin I 1.061 ng/mL (< 0.028)
[2022-03-17 22:13] VITALS: BMI 48.7
[2022-03-18 01:54] LABS: Troponin I 1.611 ng/mL (< 0.028)
[2022-03-18 04:24] LABS: Bilirubin Negative (Negative); Blood, Urine Negative (Negative); Clarity Turbid (Clear); Glucose, Urine (Dipstick) Normal (Negative); Ketone, Urine Negative (Negative); Leukocyte Negative Leu/uL (Negative); Nitrite Negative (Negative); Protein, Urine (Dipstick) Negative (Neg-Trace); RBC/HPF 0-3 HPF (0-3); Specific Gravity, Urine 1.029 (1.002-1.036); Squamous Epithelial 0-3 HPF (0-3); Urobilinogen Normal mg/dL (Less than 2); pH, Urine 6.5 (5.0-9.0)
[2022-03-18 04:25] LABS: Bacteria/HPF 1+ HPF (None Seen); Urine Culture Reflex Yes Yes
[2022-03-18 04:52] LABS: #Basophils 0.1 thou/uL (0.0-0.2); #Eosinphils 0.3 thou/uL (0.0-0.7); #Lymphocytes 2.5 thou/uL (1.20-3.40); #Monocytes 0.6 thou/uL (0.11-0.59); #Neutrophils 5.2 thou/uL (1.40-6.50); %Basophils 0.8 % (0.0-1.0); %Eosinophils 3.9 % (0.0-10.0); %Lymphocytes 28.5 % (21.0-51.0); %Monocytes 7.1 % (0.0-10.0); %Neutrophils 59.7 % (42.0-75.0); Hemoglobin 12.5 g/dL (12.0-16.0); Mean Corpuscular Hemoglobin 34.9 pg (27.0-31.0); Mean Corpuscular Volume 99.7 fL (78.0-98.0); Mean Platelet Volume 7.2 fL (7.4-10.4); Platelet Count 280 thou/uL (130-400); RBC Distribution Width 13.6 % (11.5-14.5); Red Blood Cell (RBC) Count 3.57 mill/uL (4.20-5.40); White Blood Cell (WBC) Count 8.7 thou/uL (4.8-10.8)
[2022-03-18 05:12] LABS: Anion Gap 16 mmol/L (10-20); BUN (Urea Nitrogen) 13 mg/dL (9.8-20.1); Calc. Creatinine Clearance 154 mL/min (70-130); Carbon Dioxide 23 mmol/L (22-29); Chloride 102 mmol/L (98-107); Estimated GFR 83; Glucose 111 mg/dL (70-105); Potassium 3.8 mmol/L (3.5-5.1); Sodium 137 mmol/L (136-145)
[2022-03-18 05:34] LABS: Troponin I 3.134 ng/mL (< 0.028)
[2022-03-18] MEDS ORDERED: Enoxaparin Sodium 120 MG/0.8 ML SYRINGE SC SCH (06:00)
[2022-03-18] MEDS: Enoxaparin Sodium 120 MG/0.8 ML SYRINGE SC SCH ×2 (06:05→18:14)
[2022-03-18] MEDS: hydrALAZINE 20 MG/ML VIAL SLOW IVP PRN ×2 (06:13→10:27)
[2022-03-18] MEDS: Acetaminophen 325 MG TAB PO PRN ×2 (06:13→10:26)
[2022-03-18 08:21] LABS: Magnesium 1.9 mg/dL (1.6-2.6)
[2022-03-18] MEDS ORDERED: Electrolyte Replacement Protocol 1 EACH FS SCH (14:15)
[2022-03-18 15:06] LABS: Chlamydia by PCR Not Detected (NotDetected); GC by PCR Not Detected (NotDetected)
[2022-03-18] MEDS: metroNIDAZOLE 500 MG TAB PO SCH (20:41)
[2022-03-18] MEDS ORDERED: Magnesium 2 GM/50 ML(in water) 2 GM in Premix Bag 1 BAG IVPB SCH (23:00)
[2022-03-19 04:58] LABS: #Basophils 0.1 thou/uL (0.0-0.2); #Eosinphils 0.3 thou/uL (0.0-0.7); #Lymphocytes 2.5 thou/uL (1.20-3.40); #Monocytes 0.7 thou/uL (0.11-0.59); #Neutrophils 5.9 thou/uL (1.40-6.50); %Basophils 0.8 % (0.0-1.0); %Eosinophils 3.6 % (0.0-10.0); %Lymphocytes 26.4 % (21.0-51.0); %Monocytes 7.6 % (0.0-10.0); %Neutrophils 61.7 % (42.0-75.0); Mean Corpuscular HGB CONC 33.7 g/dL (32.0-36.0); Mean Corpuscular Hemoglobin 33.3 pg (27.0-31.0); Mean Corpuscular Volume 98.9 fL (78.0-98.0); Mean Platelet Volume 7.2 fL (7.4-10.4); Platelet Count 307 thou/uL (130-400); RBC Distribution Width 13.9 % (11.5-14.5); Red Blood Cell (RBC) Count 3.59 mill/uL (4.20-5.40); White Blood Cell (WBC) Count 9.6 thou/uL (4.8-10.8)
[2022-03-19 05:22] LABS: Anion Gap 12 mmol/L (10-20); BUN (Urea Nitrogen) 12 mg/dL (9.8-20.1); Calc. Creatinine Clearance 131 mL/min (70-130); Calcium 9.1 mg/dL (7.8-10.44); Carbon Dioxide 29 mmol/L (22-29); Chloride 101 mmol/L (98-107); Estimated GFR 68; Glucose 114 mg/dL (70-105); Magnesium 2.2 mg/dL (1.6-2.6); Potassium 4.1 mmol/L (3.5-5.1); Sodium 138 mmol/L (136-145)
[2022-03-19] MEDS ORDERED: Levothyroxine Sodium 100 MCG TAB PO SCH (06:00)
[2022-03-19] MEDS: Enoxaparin Sodium 120 MG/0.8 ML SYRINGE SC SCH (06:19)
[2022-03-19] MEDS ORDERED: lamoTRIgine 25 MG TAB PO SCH (09:00)
[2022-03-19] MEDS ORDERED: Clopidogrel Bisulfate 75 MG TAB PO SCH (09:00)
[2022-03-19] MEDS ORDERED: Multivit, Therapeutic 1 TAB PO SCH (09:00)
[2022-03-19] MEDS ORDERED: Citalopram 20 MG TAB PO SCH (09:00)
[2022-03-19] MEDS ORDERED: Lisinopril/Hydrochlorothiazide 10 mg/12.5 mg Tablet PO SCH (09:00)
[2022-03-19] MEDS: metroNIDAZOLE 500 MG TAB PO SCH (10:05)
[2022-03-19 15:51] VITALS: BP 136/84; TEMP 97.9
[2022-03-19] MEDS ORDERED: Carvedilol 3.125 MG TAB PO SCH (17:00)
[2022-03-19] MEDS ORDERED: Apixaban 5 MG TAB PO SCH (21:00)
[2022-03-20] MEDS ORDERED: Lisinopril 5 MG TAB PO SCH (09:00)
[2022-03-27] MEDS ORDERED: Apixaban 5 MG TAB PO SCH (09:00)
== END 2022-03-19 19:10 | disposition home or self-care (01) | DRG 175 ==
LOC: ERS 20:07 → 2SW 21:01 → OBSVTOIN 03-18 02:25
PROVIDERS: ADMIT Internal Medicine; ATTEND Internal Medicine
DX: I26.94 Multiple subsegmental thrombotic pulmonary emboli without acute cor pulmonale (principal); I21.A1 Myocardial infarction type 2; J96.01 Acute respiratory failure with hypoxia; I42.0 Dilated cardiomyopathy; F15.20 Other stimulant dependence, uncomplicated; Z68.42 Body mass index [BMI] 45.0-49.9, adult; Z20.822 Contact with and (suspected) exposure to COVID-19; E03.9 Hypothyroidism, unspecified; I25.10 Atherosclerotic heart disease of native coronary artery without angina pectoris; E78.5 Hyperlipidemia, unspecified; I12.9 Hypertensive chronic kidney disease with stage 1 through stage 4 chronic kidney disease, or unspecified chronic kidney disease; N18.9 Chronic kidney disease, unspecified; I16.0 Hypertensive urgency; N76.0 Acute vaginitis; D63.1 Anemia in chronic kidney disease; F31.9 Bipolar disorder, unspecified; F41.9 Anxiety disorder, unspecified; F43.10 Post-traumatic stress disorder, unspecified; E66.01 Morbid (severe) obesity due to excess calories; Z88.1 Allergy status to other antibiotic agents; Z86.73 Personal history of transient ischemic attack (TIA), and cerebral infarction without residual deficits; Z95.5 Presence of coronary angioplasty implant and graft; Z88.2 Allergy status to sulfonamides; Z88.8 Allergy status to other drugs, medicaments and biological substances; Z79.899 Other long term (current) drug therapy; Z79.02 Long term (current) use of antithrombotics/antiplatelets; Z79.82 Long term (current) use of aspirin; Z79.890 Hormone replacement therapy; Z90.89 Acquired absence of other organs; Z98.51 Tubal ligation status; Z82.49 Family history of ischemic heart disease and other diseases of the circulatory system; Z71.51 Drug abuse counseling and surveillance of drug abuser
CPT/HCPCS: 36415; 80048; 81001; 83735; 84484; 85025; 87077; 87086; 87186; 87480; 87491; 87510; 87591; 87660; 93306; 93970; 99285; G0378; J0360; J1650; J3475; U0003; U0005

== ENCOUNTER 2022-11-28 10:32 | Outpatient (CLI) | payer OTHER | END 2022-11-28 10:33 | disposition home or self-care (01) | LOC: BICRAD 10:32 | PROVIDERS: ATTEND Preventive Medicine Occupational Medicine | DX: M51.36 Other intervertebral disc degeneration, lumbar region (principal); I50.9 Heart failure, unspecified | CPT/HCPCS: 71046; 72100 ==

== ENCOUNTER 2023-06-19 12:13 | Inpatient (IN) | payer OTHER, SELFPAY ==
[2023-06-19] MEDS ORDERED: Clopidogrel Bisulfate 75 MG TAB ONE (12:39)
[2023-06-19] MEDS ORDERED: Nitroglycerin 2% Ointment 1 INCH/1 GM Packet ONE ×2 (12:40→12:41)
[2023-06-19 13:34] LABS: #Basophils 0.1 thou/uL (0.0-0.2); #Eosinphils 0.3 thou/uL (0.0-0.7); #Monocytes 0.7 thou/uL (0.11-0.59); #Neutrophils 5.2 thou/uL (1.40-6.50); %Basophils 0.8 % (0.0-1.0); %Eosinophils 2.9 % (0.0-10.0); %Lymphocytes 27.7 % (21.0-51.0); %Monocytes 7.8 % (0.0-10.0); %Neutrophils 60.5 % (42.0-75.0); Hematocrit 39.8 % (36.0-47.0); Mean Corpuscular HGB CONC 32.7 g/dL (32.0-36.0); Mean Corpuscular Hemoglobin 30.6 pg (27.0-31.0); Mean Corpuscular Volume 93.6 fl (78.0-98.0); Mean Platelet Volume 9.9 fL (7.4-10.4); Platelet Count 283 10x3/uL (130-400); RBC Distribution Width 15.2 % (11.5-14.5); Red Blood Cell (RBC) Count 4.25 mill/uL (4.20-5.40); White Blood Cell (WBC) Count 8.6 10x3/uL (4.8-10.8)
[2023-06-19 13:52] LABS: ALT (SGPT) 13 U/L (8-55); AST (SGOT) 16 U/L (5-34); Albumin 4.4 g/dL (3.5-5.0); Alkaline Phosphatase 101 U/L (40-110); Anion Gap 14 mmol/L (10-20); BUN (Urea Nitrogen) 14 mg/dL (9.8-20.1); Bilirubin, Total 0.7 mg/dL (0.2-1.2); Calc. Creatinine Clearance 0 mL/min (70-130); Carbon Dioxide 24 mmol/L (22-29); Chloride 103 mmol/L (98-107); Estimated GFR 81; Globulin 3.6 g/dL (2.4-3.5); Glucose 108 mg/dL (70-105); Lipase 4 U/L (8-78); Potassium 3.7 mmol/L (3.5-5.1); Sodium 137 mmol/L (136-145)
[2023-06-19 13:55] LABS: Troponin I 0.093 ng/mL (< 0.028)
[2023-06-19] MEDS ORDERED: Nitroglycerin 0.4 MG TAB 1 EACH ONE (15:06)
[2023-06-19] MEDS ORDERED: hydrALAZINE 20 MG/ML VIAL ONE (15:38)
[2023-06-19 19:09] VITALS: BMI 45.2
[2023-06-19] MEDS ORDERED: Acetaminophen 500 MG TAB PO SCH (19:45)
[2023-06-19] MEDS: Carvedilol 3.125 MG TAB PO SCH (20:10)
[2023-06-19 20:13] LABS: Troponin I 0.087 ng/mL (< 0.028)
[2023-06-19] MEDS ORDERED: Atorvastatin Calcium 40 MG TAB PO SCH (21:00)
[2023-06-19] MEDS: Nitroglycerin 2% Ointment 1 INCH/1 GM Packet TOP SCH (22:20)
[2023-06-19] MEDS ORDERED: Acetaminophen 325 MG TAB PO PRN (23:59)
[2023-06-20 01:37] LABS: Bacteria/HPF 4+ HPF (None Seen); Bilirubin Negative (Negative); Blood, Urine Negative (Negative); Clarity Turbid (Clear); Glucose, Urine (Dipstick) Normal (Negative); Ketone, Urine Negative (Negative); Leukocyte 25 Leu/uL (Negative); Nitrite 2+ (Negative); Protein, Urine (Dipstick) 10 mg/dL (Neg-Trace); RBC/HPF 0-3 HPF (0-3); Specific Gravity, Urine 1.024 (1.002-1.036); Urobilinogen Normal mg/dL (Less than 2)
[2023-06-20] MEDS: Nitroglycerin 2% Ointment 1 INCH/1 GM Packet TOP SCH ×2 (05:58→13:32)
[2023-06-20] MEDS ORDERED: Levothyroxine Sodium 100 MCG TAB PO SCH (06:00)
[2023-06-20] MEDS: Carvedilol 3.125 MG TAB PO SCH (08:12)
[2023-06-20] MEDS ORDERED: Regadenoson 0.4 MG/5 ML SYRINGE ONE (08:53)
[2023-06-20] MEDS ORDERED: Hydrochlorothiazide 25 MG TAB PO SCH (09:00)
[2023-06-20] MEDS ORDERED: Lisinopril 10 MG TAB PO SCH (09:00)
[2023-06-20] MEDS ORDERED: Aspirin Chewable 81 MG TAB PO SCH (09:00)
[2023-06-20] MEDS ORDERED: Iopamidol 370 76% 100 ML VIAL ONE (13:02)
[2023-06-20 15:33] VITALS: BP 169/95; TEMP 97.7
== END 2023-06-20 17:25 | disposition left against medical advice (07) | DRG 305 ==
LOC: ERS 12:13 → 2SW 16:24 → OBSVTOIN 06-20 14:43
PROVIDERS: ADMIT Emergency Medicine; ATTEND Emergency Medicine
DX: I16.1 Hypertensive emergency (principal); R07.89 Other chest pain; I25.10 Atherosclerotic heart disease of native coronary artery without angina pectoris; I10 Essential (primary) hypertension; E78.5 Hyperlipidemia, unspecified; F15.10 Other stimulant abuse, uncomplicated; E03.9 Hypothyroidism, unspecified; F31.9 Bipolar disorder, unspecified; F43.10 Post-traumatic stress disorder, unspecified; F17.210 Nicotine dependence, cigarettes, uncomplicated; R82.998 Other abnormal findings in urine; R77.8 Other specified abnormalities of plasma proteins; Z53.29 Procedure and treatment not carried out because of patient's decision for other reasons; Z88.2 Allergy status to sulfonamides; Z88.8 Allergy status to other drugs, medicaments and biological substances; Z79.899 Other long term (current) drug therapy; Z79.890 Hormone replacement therapy; Z90.89 Acquired absence of other organs; Z98.890 Other specified postprocedural states; Z98.51 Tubal ligation status; Z95.818 Presence of other cardiac implants and grafts; Z71.6 Tobacco abuse counseling; F41.1 Generalized anxiety disorder
CPT/HCPCS: 36415; 71045; 71275; 78452; 80053; 81003; 81015; 83690; 84484; 85025; 85379; 87077; 87086; 87186; 93005; 93017; 94760; 96372; 96374; A9502; G0378; J0360; J1650; J2785; Q9967